=== PATIENT | female | born 1955 | race Caucasian/White ===

== ENCOUNTER 2018-03-08 06:28 | Day surgery (SDC) | payer SELFPAY ==
[2018-03-08] VITALS (8 sets, daily range): BP systolic 95–127; BP diastolic 47–70
[~2018-03-08] VITALS: Ht 160 cm; Wt 72.6 kg
[~2018-03-08 06:28] MED LIST: ATORVASTATIN CA40 MG PO; CALCIUM 500+D 51 TAB PO; FAMOTIDINE20 M1 PO; GLUCOSAMINE CHO1 CA3 PO; HYDROCHLOROT25 MG PO; LEVOTHYROXIN75 MCG PO; NICOTINE TD; VITAMIN B-121000 MC1 SL
[2018-03-08] MEDS ORDERED: PERCOCET 5/325M1 TAB PO (09:48)
[2018-03-08] MEDS ORDERED: NEURONTIN300 MG PO (09:48)
[2018-03-08] MEDS ORDERED: BL IBUPROFEN200 MG PO (09:48)
--- NOTE | 2018-03-08 11:43 | NUR ---
PT ARRIVED TO FLOOR VIA STRETCHER ACCOMPANIED BY STANLEY TURNER. PT TRANSFERED TO BED. REPORTS TO BE PAIN FREE WHEN NOT MOVING. REPORTING OF CONCERNS AND PAIN LEVEL ENCOURAGED. FALL PRECAUTIONS REINFORCED. CALL LIGHT REVIEWED AND IN REACH. O2 SAT 80 % ON RA, O2 @ 2L VIA NC APPLIED, SAT RECOVERED TO 98 %. PT SLEEPY.
--- NOTE | 2018-03-08 14:00 | NUR ---
PT SLEEPING. DAUGHTER AT BEDSIDE. CALL LIGHT WITHIN REACH.
--- NOTE | 2018-03-08 17:55 | NUR ---
PT SITTING UPRIGHT IN BED. DRINKING CLEAR LIQUIDS. STATES DOES NOT FEEL READY TO ADVANCE DIET YET. DENIES [AIN WHILE STILL. PAIN MEDICATIONS AND SCHEDULES REVIEWED. PT STATES UNDERSTANDING.
--- NOTE | 2018-03-08 19:00 | NUR ---
RECEIVED CHANGE OF SHIFT REPORT FROM STANLEY LOCKETT. PATIENT ALERT AND ORIENTED AND LYING IN BED. REPORTS PAIN LEVEL OF 10 ON 0-10 PAIN SCALE. NO APPARENT ACUTE DISTRESS NOTED. DAUGHTER AT BEDSIDE. WILL CONTINUE TO MONITOR.
--- NOTE | 2018-03-08 19:10 | NUR ---
MEDICATED WITH LORTAB 5/325 X I TAB. WILL REVALUATE FOR EFFECTIVENESS.
--- NOTE | 2018-03-09 | NUR ---
PT RESTING QUIETLY IN BED AT THIS TIME. NO APPARENT ACUTE DISTRESS NOTED. WILL CONTINUE TO MONITOR.
[2018-03-09 00:05] VITALS: BP 141/76
--- NOTE | 2018-03-09 03:54 | NUR ---
PATIENT UP AMD AMBULATING IN THE HALLWAY. LISA WELL.
[2018-03-09 04:15] VITALS: BP 108/63
--- NOTE | 2018-03-09 07:00 | NUR ---
REPORT RECEIVED FROM STANLEY BOND. PT AMBULATING IN HALLWAYS WITH DAUGHTER. STEADY GAIT. REPORTS SORENESS, BUT NOT PAIN. PLAN OF CARE DISCUSSED. REPORTING OF CONCERNS ENCOURAGED. CALL LIGHT REVIEWED. PT STATES UNDERSTANDING.
[2018-03-09 08:02] VITALS: BP 127/50
--- NOTE | 2018-03-09 12:32 | NUR ---
PT AMBULATING IN ROOM. REPORTS 8 ON PAIN SCALE OF 0-10 TO RUQ ABDOMIN. LORTAB PO ADMINISTERED. WILL MONITOR FOR EFFECTIVENESS.
--- NOTE | 2018-03-09 14:02 | NUR ---
Discharge instructions given. Patient verbalizes understanding of same. Discharged in stable condition via Wheelchair to Home with family. All belongings sent with pt.
== END 2018-03-09 14:08 | disposition home or self-care (01) | DRG 355 ==
LOC: MS2 06:28 → ORM 06:28 → MS2 11:18 → ORM 03-09 14:08
PROVIDERS: ATTEND Surgery
PROC: 0WUF4JZ Supplement Abdominal Wall with Synthetic Substitute, Percutaneous Endoscopic Approach (ICD-10-PCS; principal; 2018-03-08)
DX: K43.6 Other and unspecified ventral hernia with obstruction, without gangrene (principal); K42.0 Umbilical hernia with obstruction, without gangrene; E78.5 Hyperlipidemia, unspecified; I10 Essential (primary) hypertension
CPT/HCPCS: C1781; J2710